=== PATIENT | male | born 1950 | race Caucasian/White ===

== ENCOUNTER 2017-08-03 18:55 | Emergency (ER) | payer MEDICARE, OTHER ==
[~2017-08-03] VITALS: Ht 167.6 cm; Wt 119.7 kg
[~2017-08-03 18:55] MED LIST: ADVAIR 500/501 EA INH; ASPIR 8181 MG PO; ASPIR-TRIN325 MG PO; CARVEDILOL12.5 MG PO; FLOMAX0.4 MG PO; HYDRALAZINE HCL10 MG PO; LIPITOR10 MG PO; LOSARTAN-HCTZ1 EACH PO; LOTREL 10-20 M1 EACH PO; OMEPRAZOLE40 MG PO; PLAVIX75 MG PO; ZETIA10 MG PO
[2017-08-03] MEDS ORDERED: ALBUTEROL SULF 0.083% NEB SOLN 3 ML NEB NEB STA (19:39)
[2017-08-03] MEDS ORDERED: IPRATROPIUM BROMIDE 0.02% 2.5 ML NEB NEB STA (19:39)
[2017-08-03] MEDS ORDERED: BENZONATATE 100 MG CAP PO ONE (20:00)
--- NOTE | 2017-08-03 20:21 | Diagnostic Imaging Report ---
EXAMINATION: CHEST 2 VIEWS INDICATION: Fever. Flu like symptoms. COMPARISON: 08/22/2016. FINDINGS: TUBES and LINES: None. LUNGS: Lungs are well inflated. Lungs are clear. There is no evidence of pneumonia or pulmonary edema. PLEURA: No pleural effusion or pneumothorax. HEART AND MEDIASTINUM: The cardiac silhouette is mildly to moderately enlarged. Median sternotomy wires. BONES AND SOFT TISSUES: No acute osseous lesion. Mild spondylosis of the thoracic spine. UPPER ABDOMEN: No free air under the diaphragm. IMPRESSION: No acute thoracic abnormality. Signed by: Dr. Medardo Zarco M.D. on 08/03/2017 8:17 PM
[2017-08-03 20:31] LABS: BASOPHILS # (AUTO) 0.1 (0.0-0.1); BASOPHILS % 0.7 % (0.0-1.0); EOSINOPHILS # (AUTO) 0.3 (0.0-0.4); EOSINOPHILS % 4.1 % (0.0-6.0); HEMATOCRIT 42.4 % (38.2-49.6); HEMOGLOBIN 14.3 g/dL (14.0-18.0); LYMPHOCYTES # (AUTO) 1.2 (1.0-3.2); LYMPHOCYTES % 16.9 % (18.0-39.1); MEAN CORPUSCULAR HEMOGLOBIN 30.4 pg (28-32); MEAN CORPUSCULAR HGB CONC 33.7 g/dL (31-35); MEAN CORPUSCULAR VOLUME 90.2 fL (81-99); MONOCYTES # (AUTO) 0.7 (0.2-0.8); MONOCYTES % 10.5 % (4.4-11.3); NEUTROPHILS # (AUTO) 4.6 (2.1-6.9); NEUTROPHILS % 67.5 % (38.7-80.0); PLATELET COUNT 231 x10e3/uL (140-360); RED CELL DISTRIBUTION WIDTH 14.6 % (11.7-14.4)
[2017-08-03 21:29] LABS: BILIRUBIN,URINE NEGATIVE (NEGATIVE); CLARITY,URINE CLEAR (CLEAR); COLOR,URINE YELLOW (YELLOW); KETONES,URINE NEGATIVE (NEGATIVE); LEUKOCYTE ESTERASE ,URINE NEGATIVE (NEGATIVE); NITRITE,URINE NEGATIVE (NEGATIVE); PROTEIN,URINE DIPSTICK NEGATIVE (NEGATIVE); URINE UROBILINOGEN 0.2 mg/dL (0.2 - 1)
== END 2017-08-03 22:11 | disposition home or self-care (01) ==
LOC: ER 18:55
DX: J44.0 Chronic obstructive pulmonary disease with (acute) lower respiratory infection (principal); J20.9 Acute bronchitis, unspecified; I10 Essential (primary) hypertension
CPT/HCPCS: 36415; 71046; 81001; 83880; 85025; 87086; 87400; 93005; 94644; 99284

== ENCOUNTER 2018-07-31 09:09 | Observation (INO) | payer MEDICARE ==
[~2018-07-31] VITALS: Ht 165.1 cm; Wt 108.9 kg
--- OUTSIDE RECORDS SUMMARY | 2018-07-31 09:12 | XMS REPORT ---
Author Author [facility] Address Unknown Phone Unavailable Care Team Providers Care Meat Service Team Member Name Role Phone GRACIELANETO LIDYA Unavailable Unavailable Problems This patient has no known problems. Allergies, Adverse Reactions, Alerts This patient has no known allergies or adverse reactions. Medications This patient has no known medications. Results Test Description Test Time Test Comments Text Results Atomic Results Result Comments CHEST 2 VIEWS [place] [id number] [place] [address] Patient Name: BAR BLACK MR #: [id number] : 1950 Age/Sex: 67/M Req #: [id number] Adm Physician: Ordered by: NESTOR ALMODOVAR [employer]ER MECHANIC Report #: [id number] Location: ER Room/Bed: Procedure: [id number] DX/CHEST 2 VIEWS Exam Date: 08/03/17 Exam Time: 1999 REPORT STATUS: Signed EXAMINATION: CHEST 2 VIEWS INDICATION: Fever. Flu like symptoms. COMPARISON: 08/22/2016. FINDINGS: TUBES and LINES: None. LUNGS: Lungs are well inflated. Lungs are clear. There is no evidence of pneumonia or pulmonary edema. PLEURA: No pleural effusion or pneumothorax. HEART AND MEDIASTINUM: The cardiac silhouette is mildly to moderately enlarged. Median sternotomy wires. BONES AND SOFT TISSUES: No acute osseous lesion. Mild spondylosis of the thoracic spine. UPPER ABDOMEN: No free air under the diaphragm. IMPRESSION: No acute thoracic abnormality. Signed by: Dr. Medardo Rice M.D. on 08/03/2017 8:17 PM Dictated By: DAVONTE RICE MD, MD 16 Transcribed By: PERLA on 08/03/172016 COPY TO: NESTOR ALMODOVAR NP
[2018-07-31 10:29] LABS: BASOPHILS % 0.5 % (0.0-1.0); EOSINOPHILS # (AUTO) 0.3 (0.0-0.4); EOSINOPHILS % 3.7 % (0.0-6.0); HEMATOCRIT 41.1 % (38.2-49.6); HEMOGLOBIN 15.2 g/dL (14.0-18.0); LYMPHOCYTES # (AUTO) 1.6 (1.0-3.2); LYMPHOCYTES % 21.4 % (18.0-39.1); MEAN CORPUSCULAR HEMOGLOBIN 31.8 pg (28-32); MONOCYTES # (AUTO) 0.5 (0.2-0.8); NEUTROPHILS # (AUTO) 5.1 (2.1-6.9); NEUTROPHILS % 67.1 % (38.7-80.0); PLATELET COUNT 169 x10e3/uL (140-360); RED BLOOD COUNT 4.78 x10e6/uL (4.3-5.7); RED CELL DISTRIBUTION WIDTH 13.8 % (11.7-14.4)
[2018-07-31] MEDS ORDERED: MECLIZINE HCL 12.5 MG TAB PO ONE (10:45)
[2018-07-31 10:47] LABS: ALANINE AMINOTRANSFERASE 17 IU/L (0-55); ALBUMIN 3.7 g/dL (3.5-5.0); ALBUMIN/GLOBULIN RATIO 1.2 (0.8-2.0); ALKALINE PHOSPHATASE 77 IU/L (40-150); ANION GAP 14.5 mmol/L (8-16); BLOOD UREA NITROGEN 21 mg/dL (7-26); BUN/CREATININE RATIO 23 (6-25); CALCIUM 9.2 mg/dL (8.4-10.2); CARBON DIOXIDE 23 mmol/L (22-29); CHLORIDE 107 mmol/L (98-107); CREATINE KINASE 40 IU/L (30-200); CREATININE, SERUM 0.93 mg/dL (0.72-1.25); EST GLOMERULAR FILTRATION RATE > 60 ML/MIN (60-); GLUCOSE 110 mg/dL (74-118); POTASSIUM 3.5 mmol/L (3.5-5.1); SODIUM 141 mmol/L (136-145)
[2018-07-31] MEDS ORDERED: FUROSEMIDE INJ 10 MG/ML 4 ML VIAL IV NR (12:45)
[2018-07-31 15:15] VITALS: BP 170/77
[2018-07-31 15:40] VITALS: BP 170/77
[2018-07-31 15:54] VITALS: BP 170/77
--- NOTE | 2018-07-31 15:57 | NUR ---
patient received from ER via stretcher. see admit assess. sinus rhythm on monitor. vitals stable. no signs of distress.
[2018-07-31] MEDS ORDERED: FUROSEMIDE INJ 10 MG/ML 4 ML VIAL IV SCH (17:00)
--- NOTE | 2018-07-31 19:18 | Diagnostic Imaging Report ---
[id number] EXAMINATION: 1 view chest x-ray INDICATION: Shortness of breath COMPARISON: 08/03/2017 FINDINGS: AP view TUBES and LINES: None. LUNGS: Lungs are well inflated. Pulmonary vascular congestion and mild interstitial edema PLEURA: No significant pleural effusion or pneumothorax. HEART AND MEDIASTINUM: The cardiomediastinal silhouette is enlarged. Median sternotomy wires are seen. BONES AND SOFT TISSUES: No acute osseous lesion. Soft tissues are unremarkable. UPPER ABDOMEN: No free air under the diaphragm. IMPRESSION: Pulmonary vascular congestion, mild interstitial edema, and enlarged cardiac mediastinal silhouette. Signed by: Dr. Michelet Ibanez MD on 07/31/2018 7:15 PM
[2018-07-31 20:14] LABS: CREATINE KINASE MB 0.8 ng/mL (0-5.0)
[2018-07-31] MEDS ORDERED: FUROSEMIDE INJ 10 MG/ML 2 ML VIAL IV STA (20:16)
[2018-07-31] MEDS ORDERED: ADVAIR 500/501 EA INH (20:17)
[2018-07-31] MEDS ORDERED: LABETALOL HCL 5 MG/ML 20ML VIAL IV STA (20:18)
[2018-07-31] MEDS ORDERED: METHYLPREDNISOLONE SOD SUCC 40 MG/ML VIAL 1ML IV STA (20:18)
[2018-07-31] MEDS ORDERED: LORATADINE10 MG PO (20:19)
[2018-07-31] MEDS ORDERED: PREDNISONE20 MG PO (20:19)
--- NOTE | 2018-07-31 20:50 | Discharge Summary ---
PRINCIPAL DIAGNOSIS: Acute asthma exacerbation. SECONDARY DIAGNOSIS: Congestive heart failure. CHIEF COMPLAINT: Shortness of breath and wheezing. HISTORY OF PRESENT ILLNESS: This is a 68-year-old male with shortness of breath and wheezing. Please refer to H and P for further details. HOSPITAL COURSE: Patient had acute asthma exacerbation, treated with steroids, nebs. He also received IV Lasix for mild pulmonary edema. Patient did well, was subsequently transitioned home. DISCHARGE MEDICATIONS: Include Advair, prednisone, and nebs. FOLLOWUP: Follow up with primary care doctor in 2 days. CONDITION ON DISCHARGE: Stable and improved. EDGAR VEGA MD Job#: [id number] ALISON
[2018-07-31] MEDS ORDERED: SALMETEROL/FLUTICASONE 500/50 INH SCH (21:00)
--- NOTE | 2018-07-31 21:42 | NUR ---
Patient assisted to take out IV and discussed his prescriptions and follow up plan, patient understand well and verbalized.Patient DC from unit at 2130 by wheelchair with stable condition.[employer] help patient to take to the front lobby by wheelchair. V/S WNL.
--- NOTE | 2018-07-31 22:08 | History and Physical ---
PRIMARY CARE PHYSICIAN: Jeison Michel MD CHIEF COMPLAINT: Wheezing and shortness of breath. HISTORY OF PRESENT ILLNESS: This is a 68-year-old man with a history of asthma, now developing wheezing for the past few days, unclear as to whether he has any Advair left at home. Patient then became dizzy this morning and more short of breath with wheezing; therefore, he came to the hospital. He was found to have acute exacerbation of asthma. He is admitted for further evaluation and management. PAST MEDICAL HISTORY: 1. Stroke in 2001 without residual weakness. 2. Hypertension. 3. Myocardial infarction without stent. 4. Aortic valve replacement in 2013 at [facility]. 5. Congestive heart failure, type unknown. 6. Asthma. PAST SURGICAL HISTORY: 1. Aortic valve replacement in 2013 at [facility]. 2. Fem-pop bypass. ALLERGIES: PER ELECTRONIC MEDICAL RECORD. FAMILY AND SOCIAL HISTORY: Patient is , 1 child. No alcohol, illicit or cigarettes. Quit cigarettes 16 years ago. MEDICATIONS: Per electronic medical record. REVIEW OF SYSTEMS: Denies any fever, chills, sweats, nausea, vomiting, diarrhea, headache, vision changes, skin rash, leg pain. PHYSICAL EXAMINATION VITAL SIGNS: Have been reviewed. GENERAL: A tired-appearing man resting in bed. HEENT: Anicteric. CARDIOVASCULAR: Normal S1 and S2. LUNGS: He has moderate breath sounds. No wheezing at this time. ABDOMEN: Soft, nontender, and nondistended. EXTREMITIES: No edema or calf tenderness. NEUROLOGIC: Alert and oriented x3, moving all extremities. SKIN: Dry. PSYCHIATRIC: Normal affect. LABS: Reviewed. MEDICATIONS: Reviewed. ASSESSMENT: A 68-year-old man with: 1. Acute exacerbation of asthma. 2. Congestive heart failure which is chronic, type unknown. 3. History of stroke. 4. Hypertension. 5. Coronary artery disease. 6. Morbid obesity, body mass index is 39.9. 7. Peripheral arterial disease. 8. Hyperlipidemia. 9. Prediabetes. PLAN: 1. Treat the patient's asthma with steroids and nebs. He needs to take Advair at home twice a day, also loratadine. 2. He has mild pulmonary edema but likely symptoms are due to asthma exacerbation. We will treat him with 20 mg IV of Lasix before being discharged. 3. Use IV steroids. 4. Continue home medications. 5. Prophylaxis, use SCDs. 6. Disposition, discharge planning tonight. He will need to go home with Advair and prednisone. Job#: [id number] ALISON
[2018-08-01] MEDS ORDERED: PANTOPRAZOLE SOD 40 MG TABEC PO SCH (07:30)
[2018-08-01] MEDS ORDERED: EZETIMIBE 10 MG TAB PO SCH (09:00)
[2018-08-01] MEDS ORDERED: HYDROCHLOROTHIAZIDE 25 MG TAB PO SCH (09:00)
[2018-08-01] MEDS ORDERED: LOSARTAN POTASSIUM 100 MG TAB PO SCH (09:00)
[2018-08-01] MEDS ORDERED: ATORVASTATIN 10 MG TAB PO SCH (09:00)
[2018-08-01] MEDS ORDERED: CLOPIDOGREL BISULFATE 75 MG TAB PO SCH (09:00)
[2018-08-01] MEDS ORDERED: ASPIRIN 81 MG CHEW TAB PO SCH (09:00)
[2018-08-01] MEDS ORDERED: CARVEDILOL 12.5 MG TAB PO SCH (09:00)
[2018-08-01] MEDS ORDERED: ENOXAPARIN SOD INJ 40 MG/0.4 ML SYR SC SCH (17:00)
== END 2018-07-31 21:30 | disposition home or self-care (01) ==
LOC: ER 09:09 → ERHOLD 14:00 → IMCU 14:54
PROVIDERS: ADMIT Internal Medicine; ATTEND Internal Medicine
DX: J45.901 Unspecified asthma with (acute) exacerbation (principal); I11.0 Hypertensive heart disease with heart failure; I50.9 Heart failure, unspecified; Z86.73 Personal history of transient ischemic attack (TIA), and cerebral infarction without residual deficits; I25.2 Old myocardial infarction; Z95.2 Presence of prosthetic heart valve; Z98.62 Peripheral vascular angioplasty status; I25.10 Atherosclerotic heart disease of native coronary artery without angina pectoris; I73.9 Peripheral vascular disease, unspecified; R73.03 Prediabetes; Z87.891 Personal history of nicotine dependence
CPT/HCPCS: 36415; 71045; 80053; 82550; 82553; 83880; 84484; 85025; 85730; 93005; 99284; G0378; J1940 ×2; J2920; J3490

== ENCOUNTER 2019-03-12 01:06 | Emergency (ER) | payer MEDICARE ==
[~2019-03-12] VITALS: Ht 165.1 cm; Wt 108.9 kg
[~2019-03-12 01:06] MED LIST changes: +LORATADINE10 MG PO; +PREDNISONE20 MG PO
--- OUTSIDE RECORDS SUMMARY | 2019-03-12 01:09 | XMS REPORT | Continuity of Care Document ---
Author Author [employer] [facility] [employer] Address Unknown Phone Unavailable Care Team Providers Care Behavioral Health Care Manager Name Role Phone [employer] Unavailable Unavailable Problems Problem Status Onset Date Classification Date Reported Comments Source Acute bacterial bronchitis Active Problem 08/01/2018 [facility] Pneumonia Active Problem 08/01/2018 [facility] Medications Medication Details Route Status Patient Instructions Ordering Provider Order Date Source Loratadine 10 Mg Tablet Daily Active Anand 07/31/2018 [facility] Prednisone 20 Mg Tab Daily Active Anand 07/31/2018 [facility] Salmeterol Xinafoate/Fluticasone (Advair 500/50*) 1 Ea Aerp Every 12 Hours Active Anand 07/31/2018 [facility] Aspirin (Aspir-Shayla) 325 Mg Tablet., 325 Mg Oral Daily Active 07/31/2018 [facility] Salmeterol Xinafoate/Fluticasone (Advair 500/50*) 1 Ea Aerp, 1 Inh Inhalation Every 12 Hours Active 07/31/2018 [facility] Amlodipine Besylate/Benazepril (Lotrel 10-20 Mg Capsule) 1 Each Capsule, 20-40 Mg Oral Daily Active 08/22/2016 [facility] Hydralazine Hcl 10 Mg Tablet, 10 Mg Oral Daily Active 08/22/2016 [facility] Tamsulosin Hcl (Flomax*) 0.4 Mg Cap, 0.4 Mg Oral Daily Active 08/22/2016 [facility] Aspirin (Aspir 81) 81 Mg Tablet. Daily Active [facility] Atorvastatin Calcium (Lipitor*) 10 Mg Tablet Daily Active [facility] Carvedilol 12.5 Mg Tablet Twice A Day Active [facility] Clopidogrel Bisulfate (Plavix) 75 Mg Tablet Daily Active [facility] Ezetimibe (Zetia) 10 Mg Tablet Daily Active [facility] Losartan/Hydrochlorothiazide (Losartan-Hctz 50-12.5 Mg Tab) 1 Each Tablet Twice A Day Active [facility] Omeprazole 40 Mg Capsule.dr Daily Active [facility] Allergies, Adverse Reactions, Alerts No Known Medication Allergies Immunizations No Data Provided for This Section Results Order Name Results Value Reference Range Date Interpretation Comments Source Serum or plasma creatine kinase measurement (enzymatic activity/volume) 54 30 - 200 07/31/2018 [facility] Serum or plasma creatine kinase MB measurement (mass/volume) 0.80 0 - 5.0 07/31/2018 [facility] Troponin I measurement by highly sensitive enzyme immunoassay 0.012 0 - 0.300 07/31/2018 [facility] Blood leukocytes automated count (number/volume) 7.66 4.8 - 10.8 07/31/2018 [facility] Blood erythrocytes automated count (number/volume) 4.78 4.3 - 5.7 07/31/2018 [facility] Blood hemoglobin measurement (moles/volume) 15.2 14.0 - 18.0 07/31/2018 [facility] Automated blood hematocrit (volume fraction) 41.1 38.2 - 49.6 07/31/2018 [facility] Automated erythrocyte mean corpuscular volume 86.0 81 - 99 07/31/2018 [facility] Automated erythrocyte mean corpuscular hemoglobin (mass per erythrocyte) 31.8 28 - 32 07/31/2018 [facility] Automated erythrocyte mean corpuscular hemoglobin concentration measurement (mass/volume) 37.0 31 - 35 07/31/2018 [facility] RDW BldCo-Rto 13.8 11.7 - 14.4 07/31/2018 [facility] Automated blood platelet count (count/volume) 169 140 - 360 07/31/2018 [facility] Automated blood segmented neutrophil count as percentage of total leukocytes 67.1 38.7 - 80.0 07/31/2018 [facility] Automated blood lymphocyte count as percentage ot total leukocytes 21.4 18.0 - 39.1 07/31/2018 [facility] Automated blood monocyte count as percentage of total leukocytes 7.0 4.4 - 11.3 07/31/2018 [facility] Automated blood eosinophil count as percentage of total leukocytes 3.7 0.0 - 6.0 07/31/2018 [facility] Automated blood basophil count as percentage of total leukocytes 0.5 0.0 - 1.0 07/31/2018 [facility] IM GRANULOCYTES % 0.3 0.0 - 1.0 07/31/2018 [facility] Automated blood neutrophil count 5.1 2.1 - 6.9 07/31/2018 [facility] Blood lymphocytes count (number/volume) 1.6 1.0 - 3.2 07/31/2018 [facility] Blood monocytes automated count (number/volume) 0.5 0.2 - 0.8 07/31/2018 [facility] Automated blood eosinophil count 0.3 0.0 - 0.4 07/31/2018 [facility] Automated blood basophil count (count/volume) 0.0 0.0 - 0.1 07/31/2018 [facility] Absolute Immature Granulocyte (auto 0.02 0 - 0.1 07/31/2018 [facility] Activated partial thromboplastin time (aPTT) in platelet poor plasma bycoagulation assay 27.3 23.8 - 35.5 07/31/2018 [facility] Serum or plasma sodium measurement (moles/volume) 141 136 - 145 07/31/2018 [facility] Serum or plasma potassium measurement (moles/volume) 3.5 3.5 - 5.1 07/31/2018 [facility] Serum or plasma chloride measurement (moles/volume) 107 98 - 107 07/31/2018 [facility] Serum or plasma carbon dioxide, total measurement (moles/volume) 23 22 - 29 07/31/2018 [facility] Serum or plasma anion gap 14.5 8 - 16 07/31/2018 [facility] Serum or plasma urea nitrogen measurement (mass/volume) 21 7 - 26 07/31/2018 [facility] Serum or plasma creatinine measurement (mass/volume) 0.93 0.72 - 1.25 07/31/2018 [facility] Serum or plasma urea nitrogen/creatinine mass ratio 23 6 - 25 07/31/2018 [facility] Estimated glomerular filtration rate (GFR) determination > 60 60 07/31/2018 [facility] Glucose measurement 110 74 - 118 07/31/2018 [facility] Serum or plasma calcium measurement (mass/volume) 9.2 8.4 - 10.2 07/31/2018 [facility] Serum or plasma total bilirubin measurement (mass/volume) 1.1 0.2 - 1.2 07/31/2018 [facility] Aspartate Amino Transf (AST/SGOT) 13 5 - 34 07/31/2018 [facility] Serum or plasma alanine aminotransferase measurement (enzymatic activity/volume) 17 0 - 55 07/31/2018 [facility] Serum or plasma protein measurement (mass/volume) 6.9 6.5 - 8.1 07/31/2018 [facility] Serum or plasma albumin measurement (mass/volume) 3.7 3.5 - 5.0 07/31/2018 [facility] Plasma globulin measurement (mass/volume) 3.2 2.3 - 3.5 07/31/2018 [facility] Serum or plasma albumin/globulin mass ratio 1.2 0.8 - 2.0 07/31/2018 [facility] Serum or plasma alkaline phosphatase measurement (enzymatic activity/volume) 77 40 - 150 07/31/2018 [facility] BNP Bld-mCnc 203.3 0 - 100 07/31/2018 [facility] Pathology Reports No Data Provided for This Section Diagnostic Reports No Data Provided for This Section Consultation Notes No Data Provided for This Section Discharge Summaries No Data Provided for This Section History and Physicals No Data Provided for This Section Vital Signs No Data Provided for This Section Encounters Location Location Details Encounter Type Encounter Number Reason For Visit Attending Provider ADM Date DC Date Status Source Discharged Inpatient (obs) [id number] EDGAR VEGA MD 07/31/2018 07/31/2018 [facility] Procedures No Data Provided for This Section Assessment and Plan No Data Provided for This Section Plan of Care Plan of Care Date Source Discharge Date 07/31/18 9:30pm Disposition HOME, SELF-CARE Instructions/Education Provided Dyspnea Prescriptions See Medication Section Additional Instructions/Education pcp on Wednesday this week (2 days) Please use advair every 12 hours 07/31/2018 [facility] Social History Social History Date Source Social History Problem Response Recorded Date/Time Onset Date Status Hx Psychiatric Problems No 08/22/2016 11:17am Not Applicable Not Applicable Hx Eating Disorder No 08/22/2016 11:17am Not Applicable Not Applicable Hx Substance Use Disorder No 08/22/2016 11:17am Not Applicable Not Applicable Hx Depression No 08/22/2016 11:17am Not Applicable Not Applicable Hx Alcohol Use No 08/22/2016 11:17am Not Applicable Not Applicable Hx Substance Use Treatment No 08/22/2016 11:17am Not Applicable Not Applicable Hx Physical Abuse No 08/22/2016 11:17am Not Applicable Not Applicable Smoking Status Start Date Stop Date Never Smoker 07/31/2018 [facility] Family History No Data Provided for This Section Advance Directives Order Name Results Value Date Source Advance Directives Advance Directives Directive Response Recorded Date/Time Does the patient have an advance directive? No 07/31/18 3:36pm If yes, is advance directive on file with [facility]? No 07/31/18 3:36pm If not on file with [facility] will patient provide a copy? No 07/31/18 3:36pm Do you have a Directive to Physician? No 07/31/18 11:25am Do you have a Medical Power of Electronic Science Teacher? No 07/31/18 11:25am Do you have an out of hospital Do Not Resuscitate Order? No 07/31/18 11:25am Do you have any special needs we should be aware of? No 07/31/18 11:25am Do you have a support person here with you today? Yes 07/31/18 11:25am Did patient receive Notice of Privacy Practices? Yes 07/31/18 11:25am Did patient receive patient rights and responsibilities? Yes 07/31/18 11:25am 07/31/2018 [facility] Functional Status No Data Provided for This Section
[2019-03-12] MEDS ORDERED: ALBUTEROL/IPRATROPIUM 3 ML NEB NEB ONE (01:15)
[2019-03-12] MEDS ORDERED: METHYLPREDNISOLONE SOD SUCC 125 MG/2ML VIAL IV ONE (01:15)
[2019-03-12 02:24] LABS: BASOPHILS % 0.4 % (0.0-1.0); EOSINOPHILS # (AUTO) 0.4 (0.0-0.4); EOSINOPHILS % 5.7 % (0.0-6.0); HEMATOCRIT 42.9 % (38.2-49.6); HEMOGLOBIN 14.6 g/dL (14.0-18.0); LYMPHOCYTES # (AUTO) 2.2 (1.0-3.2); LYMPHOCYTES % 30.9 % (18.0-39.1); MEAN CORPUSCULAR HEMOGLOBIN 30.3 pg (28-32); MONOCYTES # (AUTO) 0.8 (0.2-0.8); MONOCYTES % 11.6 % (4.4-11.3); NEUTROPHILS # (AUTO) 3.7 (2.1-6.9); NEUTROPHILS % 51.1 % (38.7-80.0); PLATELET COUNT 230 x10e3/uL (140-360); RED BLOOD COUNT 4.82 x10e6/uL (4.3-5.7)
--- NOTE | 2019-03-12 02:24 | Diagnostic Imaging Report ---
EXAMINATION: CHEST SINGLE (PORTABLE) COMPARISON: Chest x-ray 07/31/2018 INDICATION: Wheezing, shortness of breath ^sob ^[id number] ^[id number] DISCUSSION: Frontal view of the chest obtained at 0157 hours. HEART AND MEDIASTINUM: Stable cardiomegaly and postoperative changes. Pulmonary veins are prominent and stable in morphology LINES: None. LUNGS: Diffuse hyperinflation consistent with COPD. No pneumonia or pulmonary edema. PLEURA: No pleural effusion or pneumothorax. BONES AND SOFT TISSUES: Median sternotomy wires are intact. The soft tissues are normal. IMPRESSION: Stable cardiomegaly with chronic vascular congestion. Pulmonary hyperinflation consistent with COPD. Signed by: Dr. Mukul Garcia MD on 03/12/2019 2:20 AM
[2019-03-12 02:39] LABS: ALANINE AMINOTRANSFERASE 18 IU/L (0-55); ALBUMIN 3.7 g/dL (3.5-5.0); ALBUMIN/GLOBULIN RATIO 1.1 (0.8-2.0); ALKALINE PHOSPHATASE 80 IU/L (40-150); ANION GAP 13.8 mmol/L (8-16); BLOOD UREA NITROGEN 20 mg/dL (7-26); BUN/CREATININE RATIO 18 (6-25); CALCIUM 9.6 mg/dL (8.4-10.2); CARBON DIOXIDE 29 mmol/L (22-29); CHLORIDE 101 mmol/L (98-107); CREATINE KINASE 64 IU/L (30-200); CREATININE, SERUM 1.12 mg/dL (0.72-1.25); EST GLOMERULAR FILTRATION RATE > 60 ML/MIN (60-); GLUCOSE 109 mg/dL (74-118); POTASSIUM 3.8 mmol/L (3.5-5.1); SODIUM 140 mmol/L (136-145)
[2019-03-12] MEDS ORDERED: SPIRIVA18 MCG INH (04:13)
[2019-03-12] MEDS ORDERED: PREDNISONE20 MG PO (04:13)
[2019-03-12] MEDS ORDERED: LASIX40 MG PO (04:13)
[2019-03-12] MEDS ORDERED: PROAIR HFA INH8.5 GM INH (04:13)
== END 2019-03-12 04:21 | disposition home or self-care (01) ==
LOC: ER 01:06
DX: R06.00 Dyspnea, unspecified (principal); J44.1 Chronic obstructive pulmonary disease with (acute) exacerbation; I10 Essential (primary) hypertension; I50.9 Heart failure, unspecified
CPT/HCPCS: 36415; 71045; 80053; 82550; 82553; 83880; 84484; 85025; 94640; 99283; J2930

== ENCOUNTER 2019-04-08 21:45 | Emergency (ER) | payer MEDICARE ==
[~2019-04-08] VITALS: Ht 165.1 cm; Wt 108.9 kg
[~2019-04-08 21:45] MED LIST changes: +LASIX40 MG PO; +PROAIR HFA INH8.5 GM INH; +SPIRIVA18 MCG INH
--- NOTE | 2019-04-08 22:14 | NUR ---
RESP CALLED FOR [facility] [place]
[2019-04-08] MEDS ORDERED: ALBUTEROL/IPRATROPIUM 3 ML NEB NEB ONE ×2 (22:15→23:30)
--- NOTE | 2019-04-08 22:53 | NUR ---
REPORTED OFF TO [facility] FOR CONTINUITY OF CARE.
--- NOTE | 2019-04-08 23:29 | Diagnostic Imaging Report ---
EXAMINATION: CHEST 2 VIEWS INDICATION: Cough, short of breath COMPARISON: None FINDINGS: PA and lateral views TUBES and LINES: None. LUNGS: Lungs are well inflated. Lungs are clear. No consolidations. Prominent central pulmonary vasculature. PLEURA: No pleural effusion or pneumothorax. HEART AND MEDIASTINUM: The cardiomediastinal silhouette is unremarkable. BONES AND SOFT TISSUES: No acute osseous lesion. Soft tissues are unremarkable. Multiple sternotomy wires,, one of the mid sternotomy wires fractured. Degenerative changes in the spine. UPPER ABDOMEN: No free air under the diaphragm. IMPRESSION: Mild cardiomegaly with pulmonary vascular congestion. Signed by: Eduin Mace DO on 04/08/2019 11:25 PM
[2019-04-08] MEDS ORDERED: METHYLPREDNISOLONE SOD SUCC 125 MG/2ML VIAL IM ONE (23:30)
[2019-04-09 00:19] VITALS: BP 126/43
== END 2019-04-09 00:24 | disposition home or self-care (01) ==
LOC: ER 21:45
DX: R05 Cough (principal); J20.9 Acute bronchitis, unspecified; I10 Essential (primary) hypertension; J44.9 Chronic obstructive pulmonary disease, unspecified; I50.9 Heart failure, unspecified
CPT/HCPCS: 71046; 94640; 96372; 99283; J2930

== ENCOUNTER 2022-04-27 19:27 | Inpatient (IN) | payer MEDICARE ==
[~2022-04-27] VITALS: Ht 167.6 cm; Wt 111.6 kg
[2022-04-27] MEDS ORDERED: METHYLPREDNISOLONE SOD SUCC 125 MG/2ML VIAL IV ONE (19:30)
[2022-04-27] MEDS ORDERED: ALBUTEROL/IPRATROPIUM 3 ML NEB NEB ONE (19:30)
[2022-04-27] MEDS ORDERED: SODIUM CHLORIDE 0.9% 1000ML 1,000 ML IV STA (19:42)
[2022-04-27] MEDS ORDERED: ACETAMINOPHEN 325 MG TAB PO ONE (19:45)
[2022-04-27] MEDS ORDERED: ACETAMINOPHEN 325 MG TAB ONE (19:55)
[2022-04-27] MEDS ORDERED: SODIUM CHLORIDE 0.9% 1000ML 1,000 ML ONE (19:55)
[2022-04-27 20:00] LABS: BASOPHILS # (AUTO) 0.1 (0.0-0.1); BASOPHILS % 0.4 % (0.0-1.0); EOSINOPHILS # (AUTO) 0.2 (0.0-0.4); EOSINOPHILS % 1.3 % (0.0-6.0); HEMATOCRIT 41.3 % (38.2-49.6); HEMOGLOBIN 13.4 g/dL (14.0-18.0); LYMPHOCYTES # (AUTO) 0.5 (1.0-3.2); LYMPHOCYTES % 3.9 % (18.0-39.1); MEAN CORPUSCULAR HEMOGLOBIN 30.2 pg (28-32); MEAN CORPUSCULAR HGB CONC 32.4 g/dL (31-35); MEAN CORPUSCULAR VOLUME 93.2 fL (81-99); MONOCYTES # (AUTO) 0.7 (0.2-0.8); MONOCYTES % 6.2 % (4.4-11.3); NEUTROPHILS # (AUTO) 10.4 (2.1-6.9); NEUTROPHILS % 87.9 % (38.7-80.0); PLATELET COUNT 159 x10e3/uL (140-360); RED BLOOD COUNT 4.43 x10e6/uL (4.3-5.7); RED CELL DISTRIBUTION WIDTH 14.5 % (11.7-14.4)
[2022-04-27 20:21] LABS: ALBUMIN 3.7 g/dL (3.5-5.0); ALBUMIN/GLOBULIN RATIO 0.9 (0.8-2.0); ANION GAP 20.6 mmol/L (8-16); CALCIUM 8.9 mg/dL (8.4-10.2); CREATININE, SERUM 1.14 mg/dL (0.72-1.25); POTASSIUM 3.6 mmol/L (3.5-5.1)
[2022-04-27 20:28] LABS: CREATINE KINASE MB 0.9 ng/mL (0-5.0)
[2022-04-27 21:52] VITALS: BP 126/50
[2022-04-27] MEDS ORDERED: PLAVIX75 MG PO (22:00)
[2022-04-27 22:03] VITALS: BP 126/50
[2022-04-27 22:20] VITALS: BP 126/50
[2022-04-28] VITALS (7 sets, daily range): BP systolic 120–148; BP diastolic 46–78
[2022-04-28] MEDS: OSELTAMIVIR PHOSPHATE 75 MG CAP PO SCH ×3 (00:57→17:39)
[2022-04-28] MEDS ORDERED: GUAIFENESIN/DEXTROMETHORPHAN LIQD 5 ML UDC NG PRN (01:15)
[2022-04-28] MEDS: ALBUTEROL/IPRATROPIUM 3 ML NEB NEB PRN ×3 (03:17→19:10)
[2022-04-28 06:45] LABS: BASOPHILS % 0.4 % (0.0-1.0); EOSINOPHILS # (AUTO) 0.1 (0.0-0.4); EOSINOPHILS % 0.8 % (0.0-6.0); HEMATOCRIT 40.5 % (38.2-49.6); HEMOGLOBIN 13.7 g/dL (14.0-18.0); LYMPHOCYTES # (AUTO) 0.3 (1.0-3.2); MEAN CORPUSCULAR HEMOGLOBIN 30.6 pg (28-32); MEAN CORPUSCULAR HGB CONC 33.8 g/dL (31-35); MEAN CORPUSCULAR VOLUME 90.6 fL (81-99); MONOCYTES # (AUTO) 0.6 (0.2-0.8); MONOCYTES % 5.7 % (4.4-11.3); NEUTROPHILS # (AUTO) 8.6 (2.1-6.9); NEUTROPHILS % 89.6 % (38.7-80.0); PLATELET COUNT 107 x10e3/uL (140-360); RED BLOOD COUNT 4.47 x10e6/uL (4.3-5.7); RED CELL DISTRIBUTION WIDTH 14.6 % (11.7-14.4)
[2022-04-28 07:31] LABS: CREATINE KINASE MB 1.5 ng/mL (0-5.0)
[2022-04-28 07:49] LABS: ALBUMIN 3.4 g/dL (3.5-5.0); ALBUMIN/GLOBULIN RATIO 0.9 (0.8-2.0); ANION GAP 19.6 mmol/L (8-16); CALCIUM 8.7 mg/dL (8.4-10.2); CREATININE, SERUM 1.09 mg/dL (0.72-1.25); POTASSIUM 3.6 mmol/L (3.5-5.1)
[2022-04-28] MEDS ORDERED: ACETAMINOPHEN 325 MG TAB PO PRN (09:15)
[2022-04-28] MEDS ORDERED: DOCUSATE SODIUM 100 MG CAP PO PRN (09:15)
[2022-04-28] MEDS ORDERED: REMDESIVIR 100MG 200 MG in SODIUM CHLORIDE 0.9% 100 ML IV ONE (13:00)
[2022-04-28 14:11] LABS: CREATINE KINASE MB 1.3 ng/mL (0-5.0)
[2022-04-28] MEDS: CLOPIDOGREL BISULFATE 75 MG TAB PO SCH (14:32)
[2022-04-28] MEDS: METHYLPREDNISOLONE SOD SUCC 40 MG/ML VIAL 1ML IV SCH ×2 (14:33→22:46)
[2022-04-28] MEDS: LOSARTAN POTASSIUM 25 MG TAB PO SCH ×2 (14:34→17:41)
[2022-04-28] MEDS: BENZONATATE 100 MG CAP PO SCH ×3 (14:35→22:46)
[2022-04-28] MEDS: CARVEDILOL 12.5 MG TAB PO SCH ×2 (14:35→17:40)
[2022-04-28] MEDS: LORATADINE 10 MG TAB PO SCH (14:36)
[2022-04-28] MEDS: PANTOPRAZOLE SOD 40 MG TABEC PO SCH (14:36)
[2022-04-28] MEDS: EZETIMIBE 10 MG TAB PO SCH (14:38)
[2022-04-28] MEDS: HYDROCHLOROTHIAZIDE 25 MG TAB PO SCH ×2 (14:39→17:41)
[2022-04-28] MEDS: ATORVASTATIN 10 MG TAB PO SCH (22:46)
[2022-04-28] MEDS: MONTELUKAST SODIUM 10 MG TAB PO SCH (22:46)
[2022-04-29] VITALS (8 sets, daily range): BP systolic 110–135; BP diastolic 55–71
[2022-04-29] MEDS: ALBUTEROL/IPRATROPIUM 3 ML NEB NEB PRN (06:20)
[2022-04-29] MEDS: METHYLPREDNISOLONE SOD SUCC 40 MG/ML VIAL 1ML IV SCH ×2 (09:08→21:17)
[2022-04-29] MEDS: OSELTAMIVIR PHOSPHATE 75 MG CAP PO SCH ×2 (09:09→18:01)
[2022-04-29] MEDS: BENZONATATE 100 MG CAP PO SCH ×3 (09:09→21:17)
[2022-04-29] MEDS: CLOPIDOGREL BISULFATE 75 MG TAB PO SCH (09:09)
[2022-04-29] MEDS: CARVEDILOL 12.5 MG TAB PO SCH ×2 (09:09→18:00)
[2022-04-29] MEDS: HYDROCHLOROTHIAZIDE 25 MG TAB PO SCH ×2 (09:09→18:01)
[2022-04-29] MEDS: LOSARTAN POTASSIUM 25 MG TAB PO SCH ×2 (09:10→18:01)
[2022-04-29] MEDS: LORATADINE 10 MG TAB PO SCH (09:10)
[2022-04-29] MEDS: EZETIMIBE 10 MG TAB PO SCH (09:10)
[2022-04-29] MEDS ORDERED: SODIUM CHLORIDE 0.9% 1000ML 1,000 ML IV ONE (09:30)
[2022-04-29] MEDS ORDERED: REMDESIVIR 100MG 100 MG in SODIUM CHLORIDE 0.9% 100 ML IV SCH (14:00)
[2022-04-29] MEDS: SODIUM CHLORIDE 0.45% 1,000 ML IV SCH ×2 (14:04→21:17)
[2022-04-29] MEDS: ATORVASTATIN 10 MG TAB PO SCH (21:17)
[2022-04-29] MEDS: MONTELUKAST SODIUM 10 MG TAB PO SCH (21:17)
[2022-04-30] VITALS: BP 139/60
[2022-04-30 00:06] VITALS: BP 135/55
[2022-04-30 00:08] VITALS: BP 135/55
[2022-04-30 04:00] VITALS: BP 144/63
[2022-04-30] MEDS: SODIUM CHLORIDE 0.45% 1,000 ML IV SCH (07:15)
[2022-04-30 07:26] VITALS: BP 134/59
[2022-04-30 08:01] VITALS: BP 134/59
[2022-04-30] MEDS ORDERED: TAMIFLU75 MG PO (08:45)
[2022-04-30] MEDS ORDERED: LORATADINE10 MG PO (08:45)
[2022-04-30] MEDS ORDERED: PREDNISONE20 MG PO (08:45)
[2022-04-30] MEDS ORDERED: Benzonatate PO (08:45)
[2022-04-30] MEDS ORDERED: SINGULAIR10 MG PO (08:45)
[2022-04-30] MEDS ORDERED: DOXYCYCLINE HY100 MG PO (08:45)
[2022-04-30] MEDS ORDERED: METFORMIN HCL500 MG PO (08:46)
[2022-04-30] MEDS: LORATADINE 10 MG TAB PO SCH (08:51)
[2022-04-30] MEDS: METHYLPREDNISOLONE SOD SUCC 40 MG/ML VIAL 1ML IV SCH (08:51)
[2022-04-30] MEDS: PANTOPRAZOLE SOD 40 MG TABEC PO SCH (08:51)
[2022-04-30] MEDS: LOSARTAN POTASSIUM 25 MG TAB PO SCH (08:52)
[2022-04-30] MEDS: OSELTAMIVIR PHOSPHATE 75 MG CAP PO SCH (08:52)
[2022-04-30] MEDS: HYDROCHLOROTHIAZIDE 25 MG TAB PO SCH (08:52)
[2022-04-30] MEDS: EZETIMIBE 10 MG TAB PO SCH (08:52)
[2022-04-30] MEDS: CARVEDILOL 12.5 MG TAB PO SCH (08:52)
[2022-04-30] MEDS: BENZONATATE 100 MG CAP PO SCH (08:52)
[2022-04-30] MEDS: CLOPIDOGREL BISULFATE 75 MG TAB PO SCH (08:53)
[2022-04-30 09:24] LABS: HEMOGLOBIN 13.5 g/dL (14.0-18.0); LYMPHOCYTES # (AUTO) 0.7 (1.0-3.2); LYMPHOCYTES % 9.4 % (18.0-39.1); MEAN CORPUSCULAR HEMOGLOBIN 29.7 pg (28-32); MEAN CORPUSCULAR HGB CONC 31.4 g/dL (31-35); MEAN CORPUSCULAR VOLUME 94.7 fL (81-99); MONOCYTES # (AUTO) 0.3 (0.2-0.8); MONOCYTES % 4.4 % (4.4-11.3); NEUTROPHILS # (AUTO) 6.3 (2.1-6.9); NEUTROPHILS % 86.1 % (38.7-80.0); PLATELET COUNT 175 x10e3/uL (140-360); RED BLOOD COUNT 4.54 x10e6/uL (4.3-5.7)
[2022-04-30 09:46] LABS: ANION GAP 16.9 mmol/L (8-16); CALCIUM 8.9 mg/dL (8.4-10.2); CREATININE, SERUM 1.04 mg/dL (0.72-1.25); MAGNESIUM 1.8 MG/DL (1.3-2.1); PHOSPHORUS 4.1 MG/DL (2.3-4.7); POTASSIUM 3.9 mmol/L (3.5-5.1)
== END 2022-04-30 10:37 | disposition home or self-care (01) | DRG 177 ==
LOC: ER 19:33 → ERHOLD 20:40 → MED/SURG2 22:31
PROVIDERS: ADMIT Internal Medicine; ATTEND Internal Medicine
PROC: 8E0ZXY6 Isolation (ICD-10-PCS; principal; 2022-04-27)
PROC: XW033E5 Introduction of Remdesivir Anti-infective into Peripheral Vein, Percutaneous Approach, New Technology Group 5 (ICD-10-PCS; 2022-04-29)
DX: U07.1 COVID-19 (principal); J12.82 Pneumonia due to coronavirus disease 2019; J15.9 Unspecified bacterial pneumonia; J96.01 Acute respiratory failure with hypoxia; J44.1 Chronic obstructive pulmonary disease with (acute) exacerbation; M62.82 Rhabdomyolysis; J45.901 Unspecified asthma with (acute) exacerbation; J09.X2 Influenza due to identified novel influenza A virus with other respiratory manifestations; Z68.39 Body mass index [BMI] 39.0-39.9, adult; E66.01 Morbid (severe) obesity due to excess calories; Z79.01 Long term (current) use of anticoagulants; Z95.2 Presence of prosthetic heart valve; Z86.73 Personal history of transient ischemic attack (TIA), and cerebral infarction without residual deficits; I25.2 Old myocardial infarction; I73.9 Peripheral vascular disease, unspecified; Z99.81 Dependence on supplemental oxygen; E78.5 Hyperlipidemia, unspecified; I25.10 Atherosclerotic heart disease of native coronary artery without angina pectoris; Z95.5 Presence of coronary angioplasty implant and graft; I11.0 Hypertensive heart disease with heart failure; I50.9 Heart failure, unspecified
CPT/HCPCS: 36415; 71045; 80048; 80053; 82550; 82553; 83036; 83605; 83735; 83880; 84100; 84484; 85025; 87040; 87205; 87400; 93005; 94640; 94799; 99251; 99285; J0248; J2543; J2920; J2930; J7030; J7050